=== PATIENT | male | born 1950 | race Caucasian/White ===

== ENCOUNTER → 2017-03-25 | Outpatient (CLI) | payer BC ==
--- NOTE | 2017-03-28 18:05 | PCVCIMAG ---
APPROVED REPORT Study performed: 03/25/2017 11:16:49 EXAM: Comprehensive 2D, Doppler, and color-flow Echocardiogram Status: routine Other Information Study Quality: Adequate Indications Palpitations Cardiomyopathy PVCs 2D Dimensions IVSd: 11.41 (7-11mm) LVDd: 56.15 mm PWd: 10.00 (7-11mm) LVDs: 50.42 (25-40mm) Left Atrium: 58.65 (27-40mm) Aortic Root: 33.54 mm LV Single Plane 4CH: 30.70 % LV Single Plane 2CH: 31.69 %Acosta's LVEF: 31.19 % Biplane EF: 31.4 % Volumes Left Atrial Volume (Systole) Single Plane 4CH: 122.38 mLSingle Plane 2CH: 148.15 mL LA ESV Index: 62.00 mL/m2 Aortic Valve AoV Peak Christiano.: 0.98 m/s AO Peak Gr.: 3.83 mmHgLVOT Max P.15 mmHg LVOT Max V: 0.54 m/s Mitral Valve E/A Ratio: 0.8 MV Decel. Time: 315.70 ms MV E Max Christiano.: 0.53 m/s MV A Christiano.: 0.68 m/s IVRT: 100.35 ms TDI E/Lateral E': 12.30E/Medial E': 15.00 Pulmonary Valve PV Peak Christiano.: 0.86 m/sPV Peak Gr.: 2.99 mmHg Pulmonary Vein P Vein S: 0.43 m/sP Vein A: 0.28 m/s P Vein D: 0.55 m/sP Vein A Dur.: 141.9 msec P Vein S/D Ratio: 0.78 Tricuspid Valve TR Peak Christiano.: 2.17 m/s TR Peak Gr.: 18.81 mmHg Left Ventricle The left ventricle is normal size. There is normal LV segmental wall motion. There is normal left ventricular wall thickness. Left ventricular systolic function is severely decreased globally. LVEF is 31%. Grade I - abnormal relaxation pattern. Right Ventricle The right ventricle is normal size. The right ventricular systolic function is normal. Atria Left atrium is severely dilated. The right atrium size is normal. Aortic Valve The aortic valve is normal in structure. Trace aortic regurgitation. There is no aortic valvular stenosis. Mitral Valve The mitral valve is normal in structure. Moderate mitral regurgitation. No evidence of mitral valve stenosis. Tricuspid Valve The tricuspid valve is normal in structure. Trace tricuspid regurgitation with PAP of 26 mmHg. Pulmonic Valve The pulmonary valve is normal in structure. Mild pulmonic regurgitation. Great Vessels The aortic root is normal in size. IVC is normal in size and collapses with >50% inspiration Pericardium There is no pericardial effusion. There is no pleural effusion. <Conclusion> The left ventricle is normal size. There is normal left ventricular wall thickness. Left ventricular systolic function is severely decreased globally. LVEF is 31%. Grade I - abnormal relaxation pattern. Left atrium is severely dilated. The aortic valve is normal in structure. The right atrium size is normal. The mitral valve is normal in structure. There is no pericardial effusion. Moderate mitral regurgitation. Trace tricuspid regurgitation with PAP of 26 mmHg.
== END | disposition home or self-care (01) ==
LOC: PCVCIMAG 11:17
PROVIDERS: ATTEND Internal Medicine Cardiovascular Disease
DX: I08.3 Combined rheumatic disorders of mitral, aortic and tricuspid valves (principal)
CPT/HCPCS: 93306

== ENCOUNTER → 2017-09-26 | Outpatient (CLI) | payer BC ==
--- NOTE | 2017-09-27 13:39 | PCVCIMAG ---
APPROVED REPORT Study performed: 09/26/2017 13:56:22 EXAM: Comprehensive 2D, Doppler, and color-flow Echocardiogram Patient Location: Echo lab Status: routine BSA: 2.37 HR: 80 bpmBP: 138/80 mmHg Rhythm: NSR Other Information Study Quality: Good Indications Hypertension/HDD Cardiomypathy, AICD, Hx of V-Tach. 2D Dimensions LVEF(%): 11.62 (>50%) IVSd: 12.29 (7-11mm)LVOT Diam: 25.04 (18-24mm) LVDd: 53.01 mm PWd: 10.82 (7-11mm)Ascending Ao: 35.91 (22-36mm) LVDs: 50.26 (25-40mm) Left Atrium: 62.47 (27-40mm) Aortic Root: 27.25 mm LV Single Plane 4CH: 40.80 % LV Single Plane 2CH: 43.12 %Acosta's LVEF: 41.96 % Biplane EF: 42.2 % Volumes Left Atrial Volume (Systole) Single Plane 4CH: 76.27 mLSingle Plane 2CH: 108.17 mL LA ESV Index: 44.00 mL/m2 Aortic Valve AoV Peak Christiano.: 1.10 m/s AO Peak Gr.: 4.81 mmHgLVOT Max P.03 mmHg LVOT Max V: 0.71 m/s NORMAN Vmax: 3.20 cm2 Mitral Valve E/A Ratio: 0.5 MV Decel. Time: 268.70 ms MV E Max Christiano.: 0.43 m/s MV A Christiano.: 0.82 m/s MV PHT: 77.92 ms TDI E/Lateral E': 6.14E/Medial E': 14.33 Medial E' Christiano.: 0.03 m/s Lateral E' Christiano.: 0.07 m/s Pulmonary Valve PV Peak Gr.: 2.79 mmHg Left Ventricle The left ventricle is normal size. There is normal left ventricular wall thickness. Left ventricular systolic function is mild to moderately decreased. LVEF is35-40% This study is not technically sufficient to allow evaluation of the LV diastolic function. Right Ventricle The right ventricle is normal size. The right ventricular systolic function is normal. Atria Left atrium is moderately dilated. The right atrium size is normal. Aortic Valve The aortic valve is normal in structure. No aortic regurgitation is present. There is no aortic valvular stenosis. Mitral Valve The mitral valve is normal in structure. Mild to moderate mitral regurgitation. No evidence of mitral valve stenosis. Tricuspid Valve The tricuspid valve is normal in structure. Trace tricuspid regurgitation. Unable to assess PA pressure. Pulmonic Valve The pulmonary valve is normal in structure. Trace pulmonic regurgitation. Great Vessels The aortic root is normal in size. IVC is normal in size and collapses with >50% inspiration Pericardium There is no pericardial effusion. <Conclusion> The left ventricle is normal size. Left ventricular systolic function is mild to moderately decreased. LVEF is35-40% This study is not technically sufficient to allow evaluation of the LV diastolic function. The right ventricle is normal size. Left atrium is moderately dilated. There is no aortic valvular stenosis. Mild to moderate mitral regurgitation. Mild to moderate mitral regurgitation. Trace tricuspid regurgitation. Unable to assess PA pressure. There is no pericardial effusion.
== END | disposition home or self-care (01) ==
LOC: PCVCIMAG 13:41
PROVIDERS: ATTEND Internal Medicine Cardiovascular Disease
DX: I34.0 Nonrheumatic mitral (valve) insufficiency (principal); I42.8 Other cardiomyopathies; I25.10 Atherosclerotic heart disease of native coronary artery without angina pectoris; E78.5 Hyperlipidemia, unspecified; I10 Essential (primary) hypertension; I47.2 Ventricular tachycardia; Z95.0 Presence of cardiac pacemaker; Z79.82 Long term (current) use of aspirin; Z79.899 Other long term (current) drug therapy
CPT/HCPCS: 36415; 93306

== ENCOUNTER → 2018-07-31 | Outpatient (CLI) | payer BC ==
--- NOTE | 2018-07-31 11:53 | PCVCIMAG ---
APPROVED REPORT Study performed: 07/31/2018 09:01:16 EXAM: Comprehensive 2D, Doppler, and color-flow Echocardiogram Patient Location: Echo lab Status: routine BSA: 2.31 HR: 70 bpmBP: 104/60 mmHg Rhythm: Pacemaker Risk Factors: Cardiac Risk Factors: HTN, Hyperlipidemia Indications Pacemaker Hypertension/HDD Ventricular tachycardia, Nonischemic cardiomyopathy 2D Dimensions IVSd: 11.13 (7-11mm)LVOT Diam: 24.77 (18-24mm) PWd: 10.88 (7-11mm)Ascending Ao: 33.14 (22-36mm) LVDs: 53.38 (25-40mm) Left Atrium: 58.93 (27-40mm) Aortic Root: 37.51 mm LV Single Plane 4CH: 41.27 % LV Single Plane 2CH: 35.75 % Biplane EF: 40.1 % Volumes Left Atrial Volume (Systole) Single Plane 4CH: 195.25 mLSingle Plane 2CH: 97.90 mL LA ESV Index: 62.00 mL/m2 Aortic Valve AoV Peak Christiano.: 1.00 m/s AO Peak Gr.: 3.99 mmHgLVOT Max P.42 mmHg LVOT Max V: 0.60 m/s NORMAN Vmax: 2.87 cm2 Left Ventricle Left ventricle is mildly dilated. There is global hypokinesis of the left ventricle. There is normal left ventricular wall thickness. Left ventricular ejection fraction is moderately decreased. LVEF is 30-35%. The left ventricular diastolic function is normal. Right Ventricle The right ventricle is normal size. The right ventricular systolic function is normal. Pacemaker lead is present in the right ventricle. Atria Left atrium is moderately dilated. A pacemaker is seen in the right atrium consistent with history. Aortic Valve The aortic valve is normal in structure. No aortic regurgitation is present. There is no aortic valvular stenosis. Mitral Valve The mitral valve is normal in structure. Mild mitral regurgitation. No evidence of mitral valve stenosis. Tricuspid Valve The tricuspid valve is normal in structure. Trace tricuspid regurgitation. Pulmonic Valve The pulmonary valve is normal in structure. There is no pulmonic valvular regurgitation. Great Vessels The aortic root is normal in size. IVC is normal in size and collapses >50% with inspiration. Pericardium There is no pericardial effusion. <Conclusion> Left ventricle is mildly dilated. Left ventricular ejection fraction is moderately decreased. LVEF is 30-35%. The left ventricular diastolic function is normal. The right ventricle is normal size. Left atrium is moderately dilated. A pacemaker is seen in the right atrium consistent with history. The aortic valve is normal in structure. Mild mitral regurgitation. Trace tricuspid regurgitation. The aortic root is normal in size. There is no pericardial effusion.
== END | disposition home or self-care (01) ==
LOC: PCVCIMAG 09:10
PROVIDERS: ATTEND Internal Medicine Cardiovascular Disease
DX: I05.1 Rheumatic mitral insufficiency (principal); I25.10 Atherosclerotic heart disease of native coronary artery without angina pectoris; I10 Essential (primary) hypertension; I42.9 Cardiomyopathy, unspecified
CPT/HCPCS: 93306

== ENCOUNTER → 2019-09-05 | Outpatient (CLI) | payer MEDICARE ==
--- NOTE | 2019-09-05 12:21 | PCVCIMAG ---
APPROVED REPORT Study performed: 09/05/2019 09:13:56 EXAM: Comprehensive 2D, Doppler, and color-flow Echocardiogram Patient Location: Echo lab Status: routine BSA: 2.23 HR: 70 bpmBP: 100/58 mmHg Rhythm: Pacemaker Other Information Study Quality: Adequate Indications Pacemaker Non-ischemic cardiomyopathy 2D Dimensions IVSd: 11.44 (7-11mm) LVDd: 56.30 mm PWd: 12.04 (7-11mm)Ascending Ao: 36.76 (22-36mm) LVDs: 45.66 (25-40mm) Left Atrium: 60.61 (27-40mm) Aortic Root: 32.07 mm LV Single Plane 4CH: 37.08 % LV Single Plane 2CH: 34.21 % Biplane EF: 33.8 % Volumes Left Atrial Volume (Systole) Single Plane 4CH: 145.22 mLSingle Plane 2CH: 157.82 mL LA ESV Index: 73.00 mL/m2 Aortic Valve AoV Peak Christiano.: 1.08 m/s AO Peak Gr.: 4.63 mmHgLVOT Max P.34 mmHg LVOT Max V: 0.58 m/s Mitral Valve E/A Ratio: 0.4 MV Decel. Time: 303.08 ms MV E Max Christiano.: 0.27 m/s MV A Christiano.: 0.69 m/s IVRT: 124.57 ms Pulmonary Valve PV Peak Christiano.: 0.77 m/sPV Peak Gr.: 2.40 mmHg Pulmonary Vein P Vein S: 0.27 m/sP Vein A: 0.30 m/s P Vein D: 0.33 m/sP Vein A Dur.: 145.3 msec P Vein S/D Ratio: 0.82 Tricuspid Valve TR Peak Christiano.: 2.14 m/s TR Peak Gr.: 18.29 mmHg Left Ventricle Left ventricle is borderline dilated. There is normal LV segmental wall motion. There is normal left ventricular wall thickness. Left ventricular ejection fraction is moderate to severely decreased. LVEF is 35%. Grade I - abnormal relaxation pattern. Right Ventricle The right ventricle is normal size. The right ventricular systolic function is normal. Pacemaker lead is present in the right ventricle. Atria Left atrium is severely, markedly dilated. The right atrium size is normal. Pacemaker lead is present in the right atrium. Aortic Valve The aortic valve is normal in structure. Trace aortic regurgitation. There is no aortic valvular stenosis. Mitral Valve The mitral valve is normal in structure. Mild mitral regurgitation. No evidence of mitral valve stenosis. Tricuspid Valve The tricuspid valve is normal in structure. Trace tricuspid regurgitation with PAP of 25 mmHg. Pulmonic Valve The pulmonary valve is normal in structure. Mild pulmonic regurgitation. Great Vessels The aortic root is normal in size. IVC is normal in size and collapses >50% with inspiration. Pericardium There is no pericardial effusion. There is no pleural effusion. <Conclusion> Left ventricle is borderline dilated. Left ventricular ejection fraction is moderate to severely decreased. LVEF is 35%. Grade I - abnormal relaxation pattern. The right ventricle is normal size. Pacemaker lead is present in the right ventricle. Left atrium is severely, markedly dilated. The right atrium size is normal. Pacemaker lead is present in the right atrium. The aortic valve is normal in structure. Trace aortic regurgitation. Mild mitral regurgitation. Trace tricuspid regurgitation with PAP of 25 mmHg. The aortic root is normal in size. There is no pericardial effusion.
== END | disposition home or self-care (01) ==
LOC: PCVCIMAG 09:01
PROVIDERS: ATTEND Internal Medicine Cardiovascular Disease
DX: I34.0 Nonrheumatic mitral (valve) insufficiency (principal); I42.8 Other cardiomyopathies; I10 Essential (primary) hypertension; I49.3 Ventricular premature depolarization; I47.2 Ventricular tachycardia; Z95.810 Presence of automatic (implantable) cardiac defibrillator; Z79.82 Long term (current) use of aspirin; Z79.899 Other long term (current) drug therapy; Z88.8 Allergy status to other drugs, medicaments and biological substances
CPT/HCPCS: 80061; 93283; 93306; G0463; 36415